=== PATIENT | female | born 1960 | race Caucasian/White ===

== ENCOUNTER 2017-08-25 22:15 | Inpatient (IN) | payer MEDICARE, SELFPAY ==
[2017-08-25] MEDS ORDERED: Norepinephrine 8 MG/0.9% NS 250 ML ONE (22:17)
[2017-08-25] MEDS ORDERED: EPINEPHrine 1 MG, Admixture Fee 1 EACH in Dextrose 5% in Water 250 ML IVPB SCH ×3 (22:45)
[2017-08-25] MEDS ORDERED: Vasopressin 40 UNIT, Admixture Fee 1 EACH in Sodium Chloride 0.9% 100 ML IV SCH (22:45)
[2017-08-25 22:50] LABS: #Basophils 0.1 thou/uL (0.0-0.2); #Eosinphils 0.1 thou/uL (0.0-0.7); #Lymphocytes 3.2 thou/uL (1.20-3.40); #Monocytes 0.8 thou/uL (0.11-0.59); #Neutrophils 9.9 thou/uL (1.40-6.50); %Basophils 0.8 % (0.0-1.0); %Eosinophils 0.6 % (0.0-10.0); %Lymphocytes 22.8 % (21.0-51.0); %Monocytes 5.8 % (0.0-10.0); Burr Cells SLIGHT = 2-5 cells (100X) (0-1/hpf); Hematocrit 32.8 % (36.0-47.0); Mean Platelet Volume 8.9 fL (7.4-10.4); Polychromasia SLIGHT = 2-3 cells (100X) (0-2/hpf); Red Blood Cell (RBC) Count 3.04 mill/uL (4.20-5.40); Target Cells SLIGHT = 2-5 cells (100X) (0-1/hpf); Tear Drops SLIGHT = 2-5 cells (100X) (0-1/hpf); White Blood Cell (WBC) Count 14.1 thou/uL (4.8-10.8)
[2017-08-25 23:08] LABS: Troponin I 0.042 ng/mL (< 0.028)
[2017-08-25 23:17] LABS: PTT 53.9 SEC (22.9-36.1)
[2017-08-25 23:30] LABS: ALT (SGPT) 358 U/L (8-55); AST (SGOT) 2075 U/L (5-34); Alkaline Phosphatase 210 U/L (40-150); BUN (Urea Nitrogen) 60 mg/dL (9.8-20.1); Bilirubin, Total 3.7 mg/dL (0.2-1.2); CK (CPK) 278 U/L (29-168); Calc. Creatinine Clearance 0 mL/min (70-130); Calcium 7.9 mg/dL (7.8-10.44); Chloride 107 mmol/L (98-107); Estimated GFR-MDRD 5; Globulin 3.4 g/dL (2.4-3.5); Lipase 234 U/L (8-78); Protein, Total 5.7 g/dL (6.0-8.3)
[2017-08-25 23:35] LABS: Carbon Dioxide Less than 8 mmol/L (22-29)
--- NOTE | 2017-08-25 23:39 | RAD ---
CHEST ONE VIEW: History: Central line placement. Comparison: None. FINDINGS: Patient is intubated with endotracheal tube tip at the level of the clavicles. Enteric tube is in sydnie ce with tip below the diaphragm out of the field of view. There is a central venous catheter tip in t he cavoatrial junction. There are bilateral perihilar opacities. Heart size upper limits of normal. IMPRESSION: 1. Findings suggestive of pulmonary edema. 2. Lines and tubes as above in good position. POS: [facility]
[2017-08-25 23:52] LABS: Oxyhemoglobin 95.5 % (94.0-97.0); Sodium 139 mmol/L (135-148)
[2017-08-25] MEDS ORDERED: Sodium Bicarb 50 MEQ/50 ML Abboject 8.4% SYRINGE ONE (23:58)
[2017-08-26 00:09] LABS: Mechanical Tidal Volume 450 ml; Modified Allen's Test POSITIVE; Vent YES
[2017-08-26 00:10] LABS: Mode VC
[2017-08-26] MEDS ORDERED: Hydrocortisone Sod Succ/PF 100 mg/2 ml Vial ONE (00:19)
[2017-08-26] MEDS: EPINEPHrine 4 MG in Dextrose 5% in Water 250 ML IVP PRN ×6 (01:15→08:12)
[2017-08-26] MEDS ORDERED: Norepinephrine 8 MG/0.9% NS 250 ML ONE (01:27)
[2017-08-26] MEDS ORDERED: Sedation Protocol FS ONE (01:44)
[2017-08-26] MEDS ORDERED: Sodium Chloride 0.9% 1,000 ML IV SCH ×2 (01:44→03:35)
[2017-08-26] MEDS ORDERED: Ondansetron HCl/PF 4 MG/2 ML Vial IVP PRN (01:44)
[2017-08-26] MEDS ORDERED: Norepinephrine 8 MG/0.9% NS 250 ML IVPB SCH (01:44)
[2017-08-26] MEDS ORDERED: CCU Electrolyte Replacement 1 EACH IVPB ONE (01:44)
[2017-08-26] MEDS ORDERED: EPINEPHrine 4 MG in Dextrose 5% in Water 250 ML IVP SCH ×2 (01:45)
[2017-08-26] MEDS ORDERED: Potassium Chloride 40 MEQ in Premix Bag 1 BAG IVPB PRN (01:51)
[2017-08-26] MEDS ORDERED: Magnesium Oxide 400 MG TAB PO PRN ×2 (01:51)
[2017-08-26] MEDS ORDERED: Potassium Phosphate 9 MMOL in Sodium Chloride 0.9% 100 ML IVPB PRN (01:51)
[2017-08-26] MEDS ORDERED: Lorazepam 2 MG/ML VIAL SLOW IVP PRN (01:51)
[2017-08-26] MEDS ORDERED: Potassium Phosphate 12 MMOL in Sodium Chloride 0.9% 250 ML 250 ML IV PRN (01:51)
[2017-08-26] MEDS ORDERED: Potassium Phosphate 15 MMOL in Sodium Chloride 0.9% 250 ML 250 ML IV PRN (01:51)
[2017-08-26] MEDS ORDERED: DISCONTINUE PREVIOUS NARCOTIC PAIN MEDICATIONS AND BENZODIAZEPINES FS SCH (01:51)
[2017-08-26] MEDS ORDERED: Potassium Chloride 20 MEQ TAB PO PRN (01:51)
[2017-08-26] MEDS ORDERED: Fentanyl 20 MCG/ML 250 ML IVPB SCH (01:51)
[2017-08-26] MEDS ORDERED: CCU ELECTROLYTE REPLACEMENT PROTOCOL FS PRN (01:51)
[2017-08-26] MEDS ORDERED: Potassium Chloride 40 MEQ in Sodium Chloride 0.9% 250 ML 250 ML IVPB PRN (01:51)
[2017-08-26] MEDS ORDERED: Propofol 1,000 MG/100 ML VIAL IV PRN (01:51)
[2017-08-26] MEDS ORDERED: Magnesium 2 GM/NS 0.9% 100 ML 2 GM in Premix Bag 1 BAG IVPB PRN (01:51)
[2017-08-26] MEDS ORDERED: Hydrocortisone Sod Succ/PF 100 mg/2 ml Vial IVP SCH ×2 (02:00→06:00)
[2017-08-26] MEDS ORDERED: Albumin 25% 25 GM/100 ML BOT IVPB SCH (02:00)
[2017-08-26] MEDS ORDERED: Dextrose 50% Abboject 50 ML SYRINGE SLOW IVP PRN (02:14)
[2017-08-26] MEDS ORDERED: Dextrose 5% in Water 1,000 ML IV PRN (02:14)
[2017-08-26] MEDS ORDERED: HumaLOG 300 UNITS/3 ML VIAL SC PRN (02:14)
[2017-08-26] MEDS ORDERED: Morphine 4 MG/ML VIAL IV PRN (02:34)
[2017-08-26 02:46] VITALS: BMI 31.0
[2017-08-26 02:51] LABS: #Basophils 0.1 thou/uL (0.0-0.2); #Eosinphils 0.1 thou/uL (0.0-0.7); #Lymphocytes 3.5 thou/uL (1.20-3.40); #Monocytes 1.1 thou/uL (0.11-0.59); #Neutrophils 11.3 thou/uL (1.40-6.50); %Basophils 0.7 % (0.0-1.0); %Eosinophils 0.8 % (0.0-10.0); %Lymphocytes 21.5 % (21.0-51.0); %Monocytes 6.6 % (0.0-10.0); Hematocrit 30.1 % (36.0-47.0); White Blood Cell (WBC) Count 16.1 thou/uL (4.8-10.8)
[2017-08-26 02:59] LABS: Critical Call CKMBM RESULT DECREASING
[2017-08-26 03:08] LABS: ALT (SGPT) 969 U/L (8-55); Alkaline Phosphatase 267 U/L (40-150); BUN (Urea Nitrogen) 60 mg/dL (9.8-20.1); Bilirubin, Total 3.4 mg/dL (0.2-1.2); Calc. Creatinine Clearance 9 mL/min (70-130); Calcium 7.6 mg/dL (7.8-10.44); Chloride 104 mmol/L (98-107); Estimated GFR-MDRD 5; Globulin 3.2 g/dL (2.4-3.5); Protein, Total 5.3 g/dL (6.0-8.3)
[2017-08-26 03:13] LABS: AST (SGOT) Greater than 3500 U/L (5-34); Carbon Dioxide Less than 8 mmol/L (22-29)
[2017-08-26] MEDS ORDERED: Dextrose 50% Abboject 50 ML SYRINGE SLOW IVP SCH (03:30)
[2017-08-26] MEDS ORDERED: Insulin Regular 300 UNITS/3 ML VIAL IVP SCH (03:30)
[2017-08-26] MEDS ORDERED: Sodium Bicarb 50 MEQ/50 ML Abboject 8.4% SYRINGE ONE ×2 (03:47→10:00)
[2017-08-26] MEDS: Sodium Bicarb 50 MEQ/50 ML Abboject 8.4% SYRINGE IVP SCH ×3 (03:54→07:55)
[2017-08-26] MEDS ORDERED: Piperacillin/Tazobactam 2.25 GM in Sodium Chloride 0.9% 100 ML IVPB SCH (04:00)
[2017-08-26] MEDS ORDERED: Sodium Bicarbonate 150 MEQ in Dextrose 5% in Water 1,000 ML IV SCH ×6 (05:00→07:00)
[2017-08-26] MEDS ORDERED: Multivitamins, Adult 10 ML, Folic Acid 1 MG, Thiamine HCl 100 MG in Dextrose 5 %-0.45 %... IV SCH ×4 (05:15)
[2017-08-26 06:01] LABS: Acetaminophen Less than 6.0 mcg/mL (10.0-30.0); Salicylate Less than 8.0 mg/dL (15.0-30.0)
[2017-08-26 06:02] LABS: Troponin I 0.146 ng/mL (< 0.028)
[2017-08-26 06:05] LABS: Critical Call CKMBM RESULT DECREASING
[2017-08-26] MEDS ORDERED: Calcium Chloride 1 GM/10 ML Abboject SYRINGE ONE ×2 (06:46→10:00)
[2017-08-26] MEDS ORDERED: Albuterol Sulfate 1.25 MG/3 ML NEB NEB SCH (07:00)
[2017-08-26] MEDS: Calcium Chloride 1 GM/10 ML Abboject SYRINGE IVP SCH ×3 (07:45→08:37)
[2017-08-26] MEDS ORDERED: Famotidine/PF 20 mg/2ml Vial SLOW IVP SCH (09:00)
--- NOTE | 2017-08-26 09:05 | HP-2 ---
CODE STATUS: FULL. PRIMARY CARE PHYSICIAN: City call. ATTENDING PHYSICIAN: Kathleen Butts M.D. RESIDENT: Erika Echavarria D.O. HISTORIAN: Prior records and documents CHIEF COMPLAINT: Altered mental status. HISTORY OF PRESENT ILLNESS: This is a 57-year-old white female transferred here from [place] for altered mental status. The daughters stated that around 12:30pm yesterday, she started acting abnormal and was flapping around like a 1- year-old having a tantrum. She went to [facility] there and was given Rocephin and Zosyn and 1 amp of bicarbonate. She quickly deteriorated there and was found to have a GCS of 3. [facility] was called and RSI was done and she was intubated at [place], started on vasopressin, epinephrine, and Levophed all max doses as her systolic blood pressure was in the 60s with diastolic over the 40s. She was given 4 liters of normal saline and then flown to [facility]. Upon arrival to [place] ER, she was found to be in septic shock with multiorgan failure. In the ER here, vancomycin was added as well as a bicarbonate drip. PAST MEDICAL HISTORY: 1. 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 2. Bipolar 1. 3. Coronary artery disease. 4. Cirrhosis of liver with ascites. 5. Depression. 6. Diabetes. 7. Thyroid problems. 8. Hyperlipidemia. 9. Hypertension. PAST SURGICAL HISTORY: Unknown. ALLERGIES: TYLENOL and SEROQUEL. SOCIAL HISTORY: Per family, denies any alcohol, tobacco, or drug use. PHYSICAL EXAMINATION: VITAL SIGNS: T-max 92.4, respirations 17, heart rate 76, blood pressure 94/41 on 3 pressors, oxygen 99% on the ventilator. Weight is 81 kilograms. GENERAL: She is intubated and sedated. EYES: She has icterus. She has dilated bilateral pupils with the right one reactive, left one is nonreactive. ENT: OG tube is in place. CARDIOVASCULAR: Heart sounds are very distant. Pulses are equal bilaterally. RESPIRATIONS: Coarse breath sounds bilaterally. ABDOMEN: Nondistended. EXTREMITIES: Trace edema bilaterally in lower extremities. SKIN: Pale and cool. On the right side of the back, multiple bruising over the right thoracic cage. NEUROLOGIC: Unable to obtain. PSYCHIATRIC: Unable to obtain. LABORATORY DATA: 1. CBC: WBC 14.1, hemoglobin of 10.3, hematocrit 32.8, platelets 277, MCV 108. 2. CMP: Sodium 138, potassium 5.3, chloride 107, bicarbonate less than 8, BUN 60, creatinine 8.06, glucose 116, GFR 5, calcium 7.9, total bilirubin 3.7, total protein 5.7, albumin 2.3, AST 2075, ALT 358, alkaline phosphatase 210. 3. PT 28, PTT 53.9, INR 2.5. 4. CK 278, CK-MB 11.9, troponin I 0.042. BNP 1486.9. Lipase 234. TSH 6.9. Lactic acid 12. 5. ABG: PH 6.9, CO2 32.6, oxygen 133.1. 6. Ammonia 469. IMAGIN. EKG first-degree AV block, no ST elevation. 2. Chest x-ray, haziness in the bases of lungs, low lung volumes. 3. Head CT at [facility] read was normal. 4. Abdomen CT read at [facility] showed large ascites, pulmonary edema, septal thickening, and ground-glass changes at both lung bases. 5. Ventilator setting, respirations 24, Positive inspiratory pressure was 50, pressure support of 10, FiO2 50%, PEEP of 5. ASSESSMENT AND PLAN: This is a 57-year-old white female presenting with: 1. Septic shock with multiorgan system failure. We will go ahead and admit the patient to the ICU. Critical Care/Pulmonology has been consulted in the emergency room and is aware that patient will be transferred there. We will continue with blood cultures, urine cultures. We will start broad-spectrum antibiotics, vancomycin and Zosyn. We will continue to maximize her blood pressure with all 3 pressors at the maximum dose as needed. We will start hydrocortisone 50 mg q. 6 hours. We will continue fluids and start albumin. We will continue fluid resuscitation. 2. Encephalopathy secondary to toxic versus metabolic versus hepatic, however likely mixed etiology. We will start lactulose and Nephrology has been consulted and recommends to continue current management, as likely not a candidate for dialysis as her blood pressure would not tolerate dialysis at this point. 3. Metabolic acidosis. We have started a bicarbonate drip and increased the ventilator settings to increase her respiratory rates. 4. Acute kidney injury. Unsure of patient's baseline creatinine or kidney function. She is currently status post 4 liters of normal saline. We will continue maintenance fluids and add albumin. Consult Nephrology, Dr. Lino who recommends continue with current management and continue with Bicarb drip. 5. Elevated BNP. We will get an echo, a stat. We will monitor her fluid intake. 6. Hypothermia. She is currently undergoing Malcolm Hugger and warm fluids. 7. Lactic acidosis likely secondary to septic shock and metabolic acidosis. We will continue to repeat and continue fluids. 8. Chronic active hepatitis. We get acute hepatitis panel, HIV, RPR. 9. Coagulopathy likely secondary to hepatitis/liver disease. Repeat a CMP and coags in the a.m. 10. Cirrhosis of liver with ascites. Consider a paracentesis, however, at this time, the patient is not very stable. 11. Hypothyroidism. Restart home medications. Check TSH. 12. Hyperbilirubinemia, likely secondary to septic shock and encephalopathy. Followup with repeat bilirubin in am. 13. Hypokalemia, likely secondary acute kidney injury and lactic acidosis. We will continue fluids and repeat in 4 hours. 14. Macrocytic anemia. We will repeat a CBC in the morning. We will start a banana bag as well as likely a component of alcohol. 15. Elevated CK-MB. We will repeat cardiac enzymes x3; however, it is likely secondary to multisystem organ failure. 16. Elevated liver function tests. Again, likely secondary to her active chronic hepatitis with shock liver on top of this. 17. CODE STATUS: FULL. 18. Deep venous thrombosis prophylaxis, SCDs as the patient is coagulopathic at this moment, so we will hold Lovenox. 19. Gastrointestinal prophylaxis, Pepcid. DISPOSITION AND LENGTH OF STAY: This patient has a very poor prognosis with a SOFA score of 17 and mortality rate of greater than 95%. This history and physical exam, as well as management, was discussed with Dr. Butts who agrees with the above assessment and plan. [facility]
--- NOTE | 2017-08-26 09:42 | PDOC.EVN ---
Event Note - Event Note Event Note: Discussed extensively with family, including 2 daughters and 1 son, the very poor prognosis of the patient. They were all in agreement not to allow do any CPR on patient. Answered all questions.
[2017-08-26 09:56] VITALS: TEMP 97.6
--- NOTE | 2017-08-26 21:21 | CON ---
DATE OF CONSULTATION: 08/26/2017 SERVICE: Pulmonary Medicine. REASON FOR CONSULTATION: Septic shock. HISTORY OF PRESENT ILLNESS: The patient is a 57-year-old white female. She has known cirrhosis. Apparently, this was fairly advanced in a new diagnosis. She was having episodes of encephalopathy. She was asked to take lactulose. Because it caused her diarrhea, she has essentially noncompliant with this medication as well as multiple other medications. Apparently, she was in her usual state of health when she started acting abnormal yesterday. Roughly midnight, she was found completely unresponsive. She was brought to the emergency department at an outside facility. She had very poor pulse. She has hypoxic respiratory failure and was completely obtunded. Initial laboratory suggested multiorgan system failure including liver failure, kidney failure, lung failure. She was placed on mechanical ventilation. She was put on 3 separate pressors. Despite aggressive interventions, her end-organ disease progressively got worse. She was deemed not a candidate for dialysis. She did have a creatinine of 8 suggesting that if this is a new thing, it is a process that has been going on for well over a week. Either way, the family arrived at bedside. The patient had 3 children. All three of more present at bedside, suggesting that at this point it would be appropriate for transition over to comfort care only. Prior to that occurring, however, the patient lost her pulse. She had been made a DNI/DNR. No aggressive interventions were pursued. The patient was allowed to from her underlying injury. Truth be told, it is not clear what the inciting event was. LABORATORY DATA: WBC 16.1, hemoglobin 9.5, platelets 258,000. Neutrophils were 70%. INR 2.5. A pH 6.99, pCO2 of 32, pO2 133. Bicarbonate less than the assay limit of 8, repeatedly. Potassium 5.7, creatinine 8.5, BUN 60. Glucose 206, lactate 15.7 and trending upward. Phosphorus 10.0, magnesium 2.0. AST is greater than the assay limit of 3500. ALT 969. Alkaline phosphatase 267. Troponin 0.146. Alcohol level was actually elevated at 61. Salicylate and acetaminophen were unremarkable. Hepatitis B and hepatitis C core antibodies were nonreactive. IMAGING: Chest x-ray demonstrates essentially consolidation of the entire right lung. There are also findings consistent with volume overload. ASSESSMENT: 1. Acute hypoxic respiratory failure. 2. Metabolic encephalopathy. 3. Septic shock. 4. Non-ST elevation myocardial infarction. 5. Acute kidney injury, presumed. 6. Cirrhosis with history of encephalopathy. 7. Hyperkalemia. 8. Coagulopathy. 9. Alcohol abuse, possible. 10. Multisystem organ failure. DISCUSSION AND PLAN: It is not clear what started this whole event off. Either way, the patient is essentially arrived at a place where she is at a point of no return. She is currently not a dialysis candidate based on what Nephrology is suggesting. As such, additional attempts at recovering the patent are futile. Either way, when a patient with advanced cirrhosis has respiratory failure requiring mechanical ventilation, and requires multiple pressors with an acute kidney injury requiring hemodialysis, they have been extraordinarily high 3 month mortality. Even under the best of circumstances, I am doubtful that the patient can make a meaningful recovery. As such, I do believe it is reasonable at this time for transition over to comfort care only as the patient's family has requested. DNI/DNR under the circumstance is perfectly appropriate. That being said, prior to withdrawal of care, the patient went back into pulseless electrical activity arrest and she . CRITICAL CARE TIME: 30 minutes. ELIER
[2017-08-26] MEDS ORDERED: Vancomycin HCl 1 GM in Premix Bag 1 BAG IVPB SCH (23:59)
--- NOTE | 2017-08-27 00:02 | DS-2 ---
ATTENDING PHYSICIAN: Dr. Fabio Greenberg. RESIDENT: Dr. Yung Monteiro. DATE OF ADMISSION: 08/26/2017 DATE OF : 08/26/2017 TIME OF : 10:25 a.m. CAUSES OF : Septic shock with acute respiratory failure and multisystem organ failure. SECONDARY DIAGNOSES: 1. Mixed toxic/metabolic/hepatic encephalopathy. 2. Metabolic acidosis. 3. Acute kidney injury. 4. Elevated BNP. 5. Hypothermia. 6. Lactic acidosis. 7. Chronic active hepatitis with cirrhosis and ascites. 8. Coagulopathy. 9. Hypothyroidism. 10. Hyperbilirubinemia, likely secondary to sepsis. 11. Hyperkalemia. 12. Macrocytic anemia. 13. Diabetes mellitus. 14. Elevated CK-MB. 15. Shock liver. HOSPITAL COURSE: The patient was a 57-year-old female who presented to an outside ER and came in for altered mental status. The patient's daughter stated that she was acting abnormally, so she came in to the hospital where she was given Rocephin, Zosyn as well as 1 amp of bicarbonate. She quickly det eriorated to the point where she required intubation with a GCS of 3. Soon after, the patient was li fe-flighted to [facility]. During that time, the patient was found to have a systolic blood press ure in the 60s with diastolic in the 40s. She was given 4 liters of normal saline. Labs include a W BC of 16.1. Potassium of 5.7, bicarbonate of less than 8, BUN of 60, creatinine of 8.05. AST of gre ater than 3500, ALT 969, alkaline phosphatase of 267 and CK-MB of 9.3. Also it was noted that the pa tient had a plasma alcohol level of 61. The patient was transferred to the floor. After discussion with her 2 daughters, it was determined that she was still a FULL CODE until their brother would be a ble to arrive. While in the ICU, patient's heart rate deteriorated and was as low as 37 and MAP was in the 40s. The patient was given calcium and bicarbonate x2, which improved the vital signs. Pulmo nology and Nephrology were consulted with no further recommendations as patient's disposition was gra ve. Upon arrival of the third child, the son, discussion was had and all parties agreed to have no f urther resuscitation efforts and allowed the patient to be comfortable. Soon after, the patient was found to be in asystole. I was at bedside. Soon after, found the patient to have no pulse by auscul tation, therefore, patient was pronounced at 10:25 a.m.
--- NOTE | 2017-08-27 07:52 | CON ---
DATE OF CONSULTATION: 08/26/2017 NEPHROLOGY CONSULT CONSULTING PHYSICIAN: Dr. Erika Echavarria. REASON FOR CONSULTATION: Acute kidney injury. REASON FOR ADMISSION: Altered mental status. HISTORY OF PRESENT ILLNESS: This is a 57-year-old female with history of ascites, chronic active hep atitis, toxic liver disease, bipolar 1, cirrhosis, depression, diabetes, hyperlipidemia, hypertension , who came to the hospital with altered mentation. The patient was doing well per the family and sta rted having some jerking movements and was found to be in severe distress and was taken to the local ER, where she was found to have possible septic shock, started on antibiotics, and transferred over h ere. Patient was severely hypotensive and remained in the 60s and 70s systolic, despite being on max imal dose of three pressors and she was found to have renal failure. Nephrology was consulted. The patient was not able to give a good history. All the events happened before the admission was not cl ear. Family members are also noted. Patient's family decided to make her comfort measures and so a meaningful recovery was less likely. PAST MEDICAL HISTORY: Positive for ascites, chronic active hepatitis, cirrhosis, coronary artery dis ease, depression, diabetes, thyroid problems, hyperlipidemia, hypertension. PAST SURGICAL HISTORY: Unknown. HOME MEDICATIONS: Not known at this time. ALLERGIES: TYLENOL and SEROQUEL. SOCIAL HISTORY: No smoking, alcohol, or illicit drug abuse. FAMILY HISTORY: No history of any kidney disease. REVIEW OF SYSTEMS: Could not be obtained as intubated and altered mentation. PHYSICAL EXAMINATION: GENERAL: This is an obese female who is intubated and seen in ICU. VITAL SIGNS: Temperature 97.6, pulse 67, respiratory rate 20, blood pressure 69/32, despite max dose of pressors. NECK: Supple. HEART: S1, S2, regular rate and rhythm. RESPIRATORY: Intubated. ABDOMEN: Obese, soft. MUSCULOSKELETAL: 1+ edema. DERMATOLOGIC: No skin rash. NEUROLOGIC: Intubated and sedated. LABORATORY DATA: Potassium is 5.7, BUN is 60, creatinine 8.05. Lactate is 15.7, phosphorus is 10.0. AST was greater than 3500, ALT was 969. ASSESSMENT AND PLAN: 1. Acute kidney injury most likely from septic shock and ischemic acute tubular necrosis with hepato renal syndrome. Prognosis extremely guarded. The patient is a poor candidate for dialysis. Eventho ugh hypotension, patient's blood pressure in the 60s and 70s despite on max dose of pressors and she has lactic acidosis dialysis and most of her symptoms are from septic shock, and supportive car e. 2. Hyperkalemia. 3. Severe acidosis. 4. Lactic acidosis. 5. Elevated troponin. 6. Elevated liver enzymes. 7. Hypoalbuminemia. 8. History of cirrhosis. 9. Septic shock. 10. Acute hypoxic respiratory failure. 11. Morbid obesity. Overall, prognosis is extremely guarded. The patient is a poor candidate for dialysis given hypotens ion and lactic acidosis. Family was available and long discussion done with the family and they deci ded to have comfort measures.
[2017-08-27] MEDS ORDERED: FLU VACC QS2017-18 36 mo. & older 0.5 ML SYRINGE IM ONE (09:00)
[2017-08-27] MEDS ORDERED: Multivitamins, Adult 10 ML, Folic Acid 1 MG, Thiamine HCl 100 MG in Dextrose 5 %-0.45 %... IV SCH ×4 (09:00)
--- NOTE | 2017-09-27 13:34 | EKG ---
Test Reason : INTUBATED Blood Pressure : / mmHG Vent. Rate : 078 BPM Atrial Rate : 078 BPM P-R Int : 258 ms QRS Dur : 076 ms QT Int : 434 ms P-R-T Axes : 049 -11 042 degrees QTc Int : 494 ms Sinus rhythm with 1st degree A-V block Low voltage QRS Inferior infarct , age undetermined Cannot rule out Anteroseptal infarct , age undetermined Abnormal ECG Confirmed by CANDE WASSERMAN ([id number]), web editor HEIDI JASSO ([id number]) on 09/27/2017 1:34:03 PM Referred By: CARLOS WICK Confirmed By:CANDE WASSERMAN
== END 2017-08-26 11:30 | disposition expired | DRG 871 ==
LOC: ERS 22:15 → CCU 08-26 01:37
PROVIDERS: ADMIT Student in an Organized Health Care Education/Training Program; ATTEND Student in an Organized Health Care Education/Training Program
PROC: 02HV33Z Insertion of Infusion Device into Superior Vena Cava, Percutaneous Approach (ICD-10-PCS; principal; 2017-08-26)
PROC: 5A1935Z Respiratory Ventilation, Less than 24 Consecutive Hours (ICD-10-PCS; 2017-08-26)
DX: A41.9 Sepsis, unspecified organism (principal); R65.21 Severe sepsis with septic shock; J96.01 Acute respiratory failure with hypoxia; I21.4 Non-ST elevation (NSTEMI) myocardial infarction; K72.01 Acute and subacute hepatic failure with coma; N17.0 Acute kidney failure with tubular necrosis; E11.9 Type 2 diabetes mellitus without complications; D53.9 Nutritional anemia, unspecified; K71.11 Toxic liver disease with hepatic necrosis, with coma; G92 Toxic encephalopathy; E87.2 Acidosis; T68.XXXA Hypothermia, initial encounter; I10 Essential (primary) hypertension; K71.51 Toxic liver disease with chronic active hepatitis with ascites; F31.9 Bipolar disorder, unspecified; I25.10 Atherosclerotic heart disease of native coronary artery without angina pectoris; F32.9 Major depressive disorder, single episode, unspecified; K74.60 Unspecified cirrhosis of liver; E78.5 Hyperlipidemia, unspecified; Z88.8 Allergy status to other drugs, medicaments and biological substances; I44.0 Atrioventricular block, first degree; E03.9 Hypothyroidism, unspecified; E80.6 Other disorders of bilirubin metabolism; E87.5 Hyperkalemia; R40.2433 Glasgow coma scale score 3-8, at hospital admission; Z68.31 Body mass index [BMI] 31.0-31.9, adult; E66.01 Morbid (severe) obesity due to excess calories; Z91.14 Patient's other noncompliance with medication regimen; Z66 Do not resuscitate; F10.10 Alcohol abuse, uncomplicated; Y90.3 Blood alcohol level of 60-79 mg/100 ml
CPT/HCPCS: 36556; 51702; 71010; 80053; 80307; 82140; 82553; 82805; 83605; 83690; 83735; 83880; 84100; 84443; 84484; 85025; 85610; 85730; 86704; 86708; 86803; 87040; 93005; 94002; 94003; 94640; 96365; 96366; 96368; 96375; A4216; J0171; J1720; J1815; J2543; J3370; J3411; J7042; J7050; J7070; P9047; S0028